=== PATIENT | male | born 1975 | race Two or more races ===

== ENCOUNTER 2023-12-04 05:16 | Day surgery (SDC) | payer OTHER ==
[~2023-12-04] VITALS: Ht 170.2 cm; Wt 88.5 kg
[2023-12-04] MEDS ORDERED: METRONIDAZOLE/SODIUM CHLORIDE 500 MG/100 ML PIGGYBACK IV ONE (05:56)
[2023-12-04] MEDS ORDERED: CEFTRIAXONE SODIUM 2,000 MG VIAL ONE (05:56)
[2023-12-04] MEDS ORDERED: HEMOSTATIC MATRIX 1 KIT KIT TOP ONE (07:06)
[2023-12-04] MEDS ORDERED: LIDOCAINE HCL 1%/EPINEPHRINE 20ML VIAL IJ ONE (07:06)
[2023-12-04] MEDS ORDERED: DIBUCAINE 30 GM TUBE ONE (07:06)
[2023-12-04] MEDS ORDERED: POVIDONE-IODINE 118 ML BOTT TOP ONE (07:06)
[2023-12-04] MEDS ORDERED: BUPIVACAINE HCL/MPF 0.5% 30ML VIAL ONE (07:06)
[2023-12-04] MEDS ORDERED: HYDROGEN PEROXIDE 473 ML BOTTLE TOP ONE (07:58)
[2023-12-04] MEDS ORDERED: NEURONTIN300 MG PO (08:19)
[2023-12-04] MEDS ORDERED: COLACE100 MG PO (08:19)
[2023-12-04] MEDS ORDERED: TRAM1TAB98 PO (08:19)
== END 2023-12-04 13:20 | disposition home or self-care (01) ==
LOC: CIR.AMB 05:16
PROVIDERS: ATTEND Surgery
DX: K60.3 Anal fistula (principal); K62.89 Other specified diseases of anus and rectum